=== PATIENT | male | born 1985 | race Caucasian/White ===

== ENCOUNTER 2021-02-10 10:00 | Outpatient (CLI) | payer OTHER, SELFPAY ==
--- NOTE | ~2021-02-10 | CT_ITS ---
EXAMINATION: CT abdomen pelvis w con DATE: 02/10/2021 10:26 INDICATION: Abdomen pain TECHNIQUE: Computed tomography (CT) of the abdomen and pelvis was performed with 100 cc intravenous c ontrast. The dose-length product was 537.13 mGy-cm. Automated exposure control and iterative reconstr uction technique were employed. COMPARISON: None. FINDINGS: Lung bases are unremarkable. Heart size normal. No significant pleural or pericardial effus ion. There are multiple nonenlarged retroperitoneal lymph nodes, likely reactive. No significant vasc ular abnormality. Mild thickening of the sigmoid colon with multiple colonic diverticula. There is subtle pericolonic f atty infiltration, suspicious for mild acute diverticulitis. The liver, spleen, pancreas, adrenal glands and kidneys are unremarkable. Gallbladder is present. No free air or free fluid. Normal appendix. Bladder wall is mildly prominent, although not well distende d. Prostate gland is mildly prominent. IMPRESSION: 1. Mild thickening of the sigmoid colon with colonic diverticulosis and subtle pericolonic fatty infi ltration. Findings suspicious for mild acute uncomplicated diverticulitis. Reviewed, dictated and finalized at location A. IMPRESSION: 1. Mild thickening of the sigmoid colon with colonic diverticulosis and subtle pericolonic fatty infiltration. Findings suspicious for mild acute uncomplicate d diverticulitis.
[2021-02-10 11:07] LABS: Basophils Absolute Auto 0.1 K/mm3 (0.0-0.1); Basophils Percent Auto 1.1 % (0.2-1.2); Eosinophils Absolute Auto 0.1 K/mm3 (0-0.3); Eosinophils Percent Auto 1.9 % (0-4.4); Hematocrit 49.9 % (42.0-52.0); Hemoglobin 16.2 g/dL (14.0-18.0); Immature Granulocyte Absolute 0.01 K/mm3 (0.00-0.031); Immature Granulocyte Percent A 0.2 % (0-0.5); Lymphocytes Absolute Auto 2.47 K/mm3 (0.9-3.2); Lymphocytes Percent Auto 46.4 % (18.3-44.2); Mean Corpuscular HGB Conc 32.5 g/dl (32-36); Mean Corpuscular Hemoglobin 27.7 pg (26-34); Mean Corpuscular Volume 85.4 fl (80-100); Mean Platelet Volume 8.1 fl (7.4-10.4); Monocytes Absolute Auto 0.3 K/mm3 (0.1-0.6); Monocytes Percent Auto 6.4 % (2.6-8.5); Neutrophils Absolute Auto 2.3 K/mm3 (1.3-6.7); Platelet Count Result 403 k/mm3 (150-375); Red Blood Count 5.84 M/mm3 (4.6-6.20); Red Cell Distribution Width 13.4 % (11.5-14.5); White Blood Count 5.3 K/mm3 (4.5-10.0)
[2021-02-10 11:08] LABS: Add Urine Microscopic? NO; Appearance Urine Clear (Clear); Bilirubin Urine Negative (Negative); Blood Urine Negative (Negative); Color Urine Yellow (Yellow); Glucose Urine UA Negative (Negative); Ketones Urine Negative (Negative); Leukocyte Esterase Ur Negative LEU/UL (Negative); Nitrate Urine Negative (Negative); Protein Urine Negative (Negative); Urobilinogen Urine Negative mg/dL (<2.0)
[2021-02-10 11:11] LABS: Specific Grav Ur > 1.060 (1.001-1.035)
[2021-02-10 11:23] LABS: Alanine Aminotransferase 25 U/L (4-50); Albumin Level 4.7 g/dL (3.5-5.1); Alkaline Phosphatase 47 U/L (38-126); Anion Gap 4 mmol/L (8-16); Aspartate Amino Transferase 27 U/L (17-59); Bilirubin,Total 0.6 mg/dL (0.2-1.3); Blood Urea Nitrogen 10 mg/dL (9-20); Calcium 9.7 mg/dL (8.4-10.2); Carbon Dioxide 30 mmol/L (22-30); Chloride 102 mmol/L (98-107); Cholesterol 203 mg/dL (0-200); Estimated Glomerular Filt Rate > 60; Glucose 99 mg/dL (75-110); HDL Direct 48 mg/dL; Sodium 136 mmol/L (137-145); Triglycerides 126 mg/dL (<150)
[2021-02-10 11:28] LABS: LDL Cholesterol Direct 123 mg/dL
== END 2021-02-10 10:01 | disposition home or self-care (01) ==
PROVIDERS: PCP Internal Medicine; Visit Provider Nurse Practitioner
DX: K92.1 Melena (principal); R10.9 Unspecified abdominal pain; Z13.220 Encounter for screening for lipoid disorders
CPT/HCPCS: 36415; 74177; 80053; 80061; 81003; 85025; Q9967

== ENCOUNTER 2025-02-04 08:29 | Observation (INO) | payer OTHER, SELFPAY ==
[2025-02-04] VITALS (14 sets, daily range): BP systolic 106–143; BP diastolic 66–93; PULSE 73–96; RESP 16–20; TEMP 36.3–37; O2SAT 97–100; BMI 36.0
--- NOTE | ~2025-02-04 | CT_ITS ---
EXAMINATION: CT abdomen pelvis w con DATE: 02/04/2025 09:27 INDICATION: Left lower quadrant abdominal pain TECHNIQUE: Computed tomography (CT) of the abdomen and pelvis was performed without intravenous contr ast. Automated exposure control and iterative reconstruction technique were employed. The dose-length product was 1379.69 mGy-cm. COMPARISON: None FINDINGS: Lung bases are clear. Heart size normal. No pericardial or pleural effusion. Liver, gallbladder, sple en, pancreas, bilateral adrenal glands and kidneys are normal. Normal appendix. No bowel obstruction. There are several scattered diverticula with descending and sigmoid colon predominance. There is pro minent wall thickening and inflammatory stranding along the sigmoid colon consistent with diverticuli tis. 3.3 x 1.6 x 2.2 cm gas and fluid collection along the anterior margin of the sigmoid colon withi n this region which could represent a diverticulum versus a small intramural abscess. There is promin ent edematous-appearing wall thickening of the partially decompressed bladder with prompt at the dome of the bladder where there is some surrounding stranding extending between the bladder and the regio n of diverticulitis suggesting this could be reactive as opposed to due to cystitis. No free intraper itoneal gas or fluid. No pathologically enlarged abdominal or pelvic lymphadenopathy. Chronic mild li mary physiologic anterior wedging at L1. Mild lumbar and lower thoracic spondylosis. IMPRESSION: 1. Sigmoid diverticulitis with possible small intramural abscess. 2. Edematous wall thickening at the dome of the bladder with surrounding inflammatory stranding most likely reactive related to the adjacent diverticulitis as opposed to cystitis but would correlate wit h urinalysis. Reviewed, dictated and finalized at location A. IMPRESSION: 1. Sigmoid diverticulitis with possible small intramural abscess. 2. Edematous wall thickening at the dome of the bladder with surrounding inflam matory stranding most likely reactive related to the adjacent diverticulitis as opposed to cystitis but would correlate with urinalysis.
[2025-02-04 09:00] LABS: Add Urine Microscopic? YES; Appearance Urine Clear (Clear); Bacteria Urine None Seen /hpf; Bilirubin Urine 1+ (Negative); Blood Urine 1+ (Negative); Color Urine Dark Yellow (Yellow); Glucose Urine UA Negative (Negative); Ketones Urine Trace mg/dL (Negative); Leukocyte Esterase Ur Negative LEU/UL (Negative); Nitrate Urine Negative (Negative); Non Pathogenic Casts 0-2; Protein Urine 1+ mg/dL (Negative); Specific Grav Ur 1.034 (1.001-1.035); Squamous Epithelial Cell Urine None Seen /hpf (Few); WBC Urine 0-5 /hpf (0-3)
[2025-02-04 09:02] LABS: Basophils Absolute Auto 0.1 K/mm3 (0.0-0.1); Basophils Percent Auto 0.8 % (0.2-1.2); Eosinophils Absolute Auto 0.6 K/mm3 (0-0.3); Eosinophils Percent Auto 4.6 % (0-4.4); Hematocrit 43.6 % (42.0-52.0); Hemoglobin 13.5 g/dL (14.0-18.0); Immature Granulocyte Absolute 0.07 K/mm3 (0.00-0.031); Immature Granulocyte Percent A 0.6 % (0-0.5); Lymphocytes Absolute Auto 2.58 K/mm3 (0.9-3.2); Lymphocytes Percent Auto 21.7 % (18.3-44.2); Mean Corpuscular Hemoglobin 26.4 pg (26-34); Mean Corpuscular Volume 85.3 fl (80-100); Mean Platelet Volume 8.4 fl (7.4-10.4); Monocytes Absolute Auto 1.2 K/mm3 (0.1-0.6); Monocytes Percent Auto 9.7 % (2.6-8.5); Neutrophils Absolute Auto 7.4 K/mm3 (1.3-6.7); Neutrophils Percent Auto 62.6 % (45.5-73.1); Platelet Count Result 575 k/mm3 (150-375); Red Blood Count 5.11 M/mm3 (4.6-6.20); Red Cell Distribution Width 13.2 % (11.5-14.5); White Blood Count 11.9 K/mm3 (4.5-10.0)
[2025-02-04 09:09] LABS: Alanine Aminotransferase 35 U/L (6-50); Albumin Level 4.2 g/dL (3.5-5.1); Alkaline Phosphatase 93 U/L (38-126); Anion Gap 11 mmol/L (4-12); Aspartate Amino Transferase 21 U/L (17-59); Bilirubin,Total 0.4 mg/dL (0.2-1.3); Blood Urea Nitrogen 13 mg/dL (9-20); Calcium 9.1 mg/dL (8.4-10.2); Carbon Dioxide 29 mmol/L (22-30); Chloride 101 mmol/L (98-107); Estimated CRCL calculation 145 ml/min; Estimated Glomerular Filt Rate > 60; Glucose 108 mg/dL (65-110); Lipase 65 U/L (23-300); Potassium 4.2 mmol/L (3.4-5.0); Sodium 141 mmol/L (137-145)
[2025-02-04 09:14] LABS: Estimated CRCL calculation 127 ml/min; Estimated Glomerular Filt Rate > 60
--- NOTE | 2025-02-04 09:42 | ED_ITS ---
HPI - Abdominal Pain General Chief Complaint: Abdominal Pain Stated Complaint: abd pain Time Seen by Provider: 02/04/25 08:54 History of Present Illness HPI narrative: Pt presents with abdominal pain in LLQ. Pt has history of diverticulitis and had some left over antibiotics which he took. Pt says the pain started a week ago and he took a few days fo antibiotics which helped the pain but it is still present. Pt denies fever or chills or bloody stools. Related Data Allergies Allergy/AdvReac Type Severity Reaction Status Date / Time shellfish derived Allergy Bothering Verified 02/04/25 13:42 MRI Review of Systems 2 Review of Systems: All systems reviewed & are unremarkable except as noted in HPI and below PMFSH Past Medical History Medical History Asthma Broken finger Diverticulitis Family History Family History (Updated 02/04/25 @ 13:52 by Blanco Spivey RN) Father Alcoholism Mother Hypertension Cancer Sibling Heart disease Social History Social History Smoking packs per day: 1.5 Smoking cigarettes per day: 30.0 Years smoked: 25 Smoking pack-years: 37.50 Smoking status: Current every day smoker Tobacco type: cigarettes Alcohol intake: current Drinks per week: 4 Substance use: current Substance use type: marijuana Do You Feel Safe in your Home?: Yes Lack of Transportation: No Lack of Food: Never True Current Housing: I Have Housing Concerned About Future Housing: No Difficulty Paying Gas/Electric Bills: No Difficulty Paying for Meds: No Currently Unemployed: No Education: High School Diploma/GED Difficulty w/ Childcare or Family Care: No Spiritual care concerns: No Exam 2 Const: General: healthy appearing and no acute distress Nutritional Appearance: well nourished Orientation/consciousness: patient oriented x3 Limitations: no limitations Resp: Effort & Inspection: normal respiratory effort Auscultation: clear to auscultation bilaterally Cardio: Rate: regular rate Rhythm: regular rhythm GI: GI Palp: Yes Soft to palpation and Yes Tenderness to palpation present (GI) (mild llq tenderness) Auscultation: normal bowel sounds Skin: General skin exam: normal color Rashes: no rashes Wounds: no wounds Neuro: General: patient oriented x3, moves all extremities, no meningeal signs and no focal motor deficits Speech: normal speech Extrem: General: normal to inspection and no clubbing, cyanosis or edema Psych: Mental Status: mental status grossly normal Affect: normal affect Attitude: cooperative Course Vital Signs Vital signs: Vital Signs Temperature 97.3 F L 02/04/25 08:34 Pulse Rate 96 02/04/25 08:34 Respiratory Rate 18 02/04/25 08:34 Blood Pressure 143/93 H 02/04/25 08:34 Pulse Oximetry 100 02/04/25 08:34 Temperature 97.8 F 02/04/25 13:46 Pulse Rate 73 02/04/25 13:46 Respiratory Rate 18 02/04/25 13:46 Blood Pressure 115/66 02/04/25 13:46 Pulse Oximetry 97 02/04/25 13:46 Oxygen Delivery Room Air 02/04/25 14:00 MDM - Abdominal Pain MDM Narrative Medical decision making narrative: Pt presents with LLQ pain that has been present for a week. Pt took some left over antibiotics which helped but still present. Pt is partially treated so will need labs and CT to rule out diverticulitis or abscess. Pt does not want pain meds. Pt has diverticulitis with small intramural abscess. discussed with Dr Joseph and said he probably needs IV antibiotics and admission. Discussed with Terrie Jin will admit Lab Data 02/04/25 08:49 02/04/25 09:12 Labs: Lab Results 02/04/25 02/04/25 Range/Units 08:49 09:12 WBC 11.9 H (4.5-10.0) K/mm3 RBC 5.11 (4.6-6.20) M/mm3 Hgb 13.5 L (14.0-18.0) g/dL Hct 43.6 (42.0-52.0) % MCV 85.3 (80-100) fl MCH 26.4 (26-34) pg MCHC 31.0 L (32-36) g/dl RDW 13.2 (11.5-14.5) % Plt Count 575 H (150-375) k/mm3 MPV 8.4 (7.4-10.4) fl Immature Gran % (Auto) 0.6 H (0-0.5) % Neut % (Auto) 62.6 (45.5-73.1) % Lymph % (Auto) 21.7 (18.3-44.2) % [place] % (Auto) 9.7 H (2.6-8.5) % Eos % (Auto) 4.6 H (0-4.4) % Baso % (Auto) 0.8 (0.2-1.2) % Lymph # (Auto) 2.58 (0.9-3.2) K/mm3 [place] # (Auto) 1.2 H (0.1-0.6) K/mm3 Eos # (Auto) 0.6 H (0-0.3) K/mm3 Baso # (Auto) 0.1 (0.0-0.1) K/mm3 Abs Immat Gran (auto) 0.07 H (0.00-0.031) K/mm3 Absolute Neuts (auto) 7.4 H (1.3-6.7) K/mm3 Absolute Nucleated RBC 0.000 (0.0-0.012) K/mm3 Nucleated RBC % 0.0 (0.0-0.2) % Sodium 141 (137-145) mmol/L Potassium 4.2 (3.4-5.0) mmol/L Chloride 101 (98-107) mmol/L Carbon Dioxide 29 (22-30) mmol/L Anion Gap 11 (4-12) mmol/L BUN 13 (9-20) mg/dL Creatinine 0.78 0.90 (0.7-1.3) mg/dL Estim Creat Clear Calc 145 127 ml/min Estimated GFR > 60 > 60 (59 - ) Glucose 108 (65-110) mg/dL Calcium 9.1 (8.4-10.2) mg/dL Total Bilirubin 0.4 (0.2-1.3) mg/dL AST 21 (17-59) U/L ALT 35 (6-50) U/L Alkaline Phosphatase 93 (38-126) U/L Total Protein 8.0 (6.3-8.2) g/dL Albumin 4.2 (3.5-5.1) g/dL Lipase 65 (23-300) U/L Urine Color Dark yellow (Yellow) Urine Appearance Clear (Clear) Urine pH 6.0 (5.0-9.0) Ur Specific [place] 1.034 (1.001-1.035) Urine Protein 1+ H (Negative) mg/dL Urine Glucose (UA) Negative (Negative) mg/dL Urine Ketones Trace H (Negative) mg/dL Ur Blood (Man) 1+ H (Negative) Urine Nitrate Negative (Negative) Urine Bilirubin 1+ H (Negative) Urine Urobilinogen 1.0 (<2.0) mg/dL Leukocyte Esterase Rfl Negative (Negative) MALIKA/UL Urine RBC 11-20 H (0-2) /hpf Urine WBC 0-5 (0-3) /hpf Ur Squamous Epith Cells None seen (Few) /hpf Urine Bacteria None seen /hpf Urine Casts 0-2 Imaging Data Radiologist's impression: ITS Impressions Abdomen/Pelvis CT 02/04/25 10:10 IMPRESSION: 1. Sigmoid diverticulitis with possible small intramural abscess. 2. Edematous wall thickening at the dome of the bladder with surrounding inflammatory stranding most likely reactive related to the adjacent diverticulitis as opposed to cystitis but would correlate with urinalysis. Discharge Plan Discharge Clinical Impression: Diverticulitis Patient Disposition: Still a Patient Condition: Stable
--- NOTE | 2025-02-04 12:20 | P.HP_ITS ---
H&P: HPI History of Present Illness Date/Time: 02/04/25 12:20 Chief Complaint: Fever, Abdominal Pain Narrative: 39 y/o M with PMH of diverticulitis and asthma presents here with abdominal pain and fever. The patient presents here from home for further evaluation of abdominal pain and fever on 02/04. He reports onset of left lower quadrant abdominal pain approximately 1 week ago. He reports the pain was similar to his previous episode of diverticulitis. Last occurrence in 2020. He describes the pain as achy and in his LLQ/periumbilical/supra pubic region. The patient had a previous prescription of Augmentin and had extra medication, took 10 doses (bid x5 days) to try to treat the presumed diverticulitis. Pain did not resolve. Now reporting fever, chills, and intermittent/mild diaphoresis. He denies body aches, hematochezia/dark tarry stools, or urinary symptoms. Initial VS at presentation: 97.3? F, HR 96, R 18, 143/93, and 100% on RA. ED workup showed: WBC 11.9, hemoglobin 13.5, no significant electrolyte derangements, creatinine 0.9 and GFR >60, and UA showed 1+ protein/trace ketones/1+ blood/1+ bilirubin/11-[address] of the abdomen/pelvis showed sigmoid diverticulitis with possible small intramural abscess (3.3 x 1.6 x 2.2 cm gas/fluid collection) and edematous wall thickening of the dome of the bladder with surrounding inflammatory stranding most likely reactive related to the adjacent diverticulitis as opposed to cystitis (correlate with UA). Review of Systems Review of Systems: All systems reviewed & are unremarkable except as noted in HPI and below [facility] Past Medical History Medical History Asthma Broken finger Diverticulitis Family History Family History Father Alcoholism Mother Hypertension Sibling Heart disease Social History Social History Smoking packs per day: 1 Smoking cigarettes per day: 20.0 Smoking status: Current every day smoker Alcohol intake: current Meds Home Medications and Allergies Home Medications ?Medication ?Instructions ?Recorded ?Confirmed ?Type cyclobenzaprine 10 mg tablet 10 mg PO TID PRN muscle spasm #20 07/06/21 07/06/21 Rx tabs methylprednisolone 4 mg tablets in See Rx Instructions PO PER PKG DIR 07/06/21 07/06/21 Rx a dose pack (Medrol ([place])) #21 ea Allergies Allergy/AdvReac Type Severity Reaction Status Date / Time shellfish derived Allergy Bothering Verified 02/07/21 14:35 MRI Vital Signs Vital Signs - 24 hr 02/04/25 08:34 02/04/25 08:51 02/04/25 09:01 Temperature 97.3 F L 97.9 F Pulse Rate 96 82 84 Respiratory Rate 18 16 16 Blood Pressure 143/93 H 130/77 140/79 Pulse Oximetry 100 97 98 02/04/25 09:35 Temperature Pulse Rate 82 Respiratory Rate 16 Blood Pressure 126/73 Pulse Oximetry 97 Exam Const: General: comfortable and no acute distress Other: , male, nontoxic appearance HENMT: Face/Nose/Sinus: Normal nares present Mouth: Yes moist mucous membranes Eyes: General: appearance normal, both eyes and all related structures Sclera: sclerae normal Pupils: Equal, round and reactive pupils present EOM: EOMs intact bilaterally Resp: Effort & Inspection: normal respiratory effort Auscultation: clear to auscultation bilaterally Cardio: Rate: regular rate Rhythm: regular rhythm Other: S1-S2 present without murmur, rub, ectopy GI: Other: Abdomen soft, nondistended, nontender. Normoactive bowel sounds in all quadrants. Skin: General skin exam: normal color and no rashes or lesions noted Wounds: no wounds Neuro: Speech: normal speech Motor exam (neuro): 5/5 motor strength present throughout Sensory Exam: normal sensation Other: A&O x4 Extrem: General: normal to inspection Psych: Mental Status: mental status grossly normal Affect: normal affect Other: Good insight and judgment, pleasant H&P: Results Labs Labs: Short CBC 02/04/25 Range/Units 08:49 WBC 11.9 H (4.5-10.0) K/mm3 Hgb 13.5 L (14.0-18.0) g/dL Hct 43.6 (42.0-52.0) % Plt Count 575 H (150-375) k/mm3 BMP 05/02/25 05/02/25 08:49 09:12 Sodium 141 Potassium 4.2 Chloride 101 Carbon Dioxide 29 BUN 13 Creatinine 0.78 0.90 Glucose 108 Calcium 9.1 Liver Function 02/04/25 Range/Units 08:49 Total Bilirubin 0.4 (0.2-1.3) mg/dL AST 21 (17-59) U/L ALT 35 (6-50) U/L Alkaline Phosphatase 93 (38-126) U/L Albumin 4.2 (3.5-5.1) g/dL Urine 02/04/25 Range/Units 08:49 Urine Color Dark yellow (Yellow) Urine Appearance Clear (Clear) Urine pH 6.0 (5.0-9.0) Ur Specific [place] 1.034 (1.001-1.035) Urine Protein 1+ H (Negative) mg/dL Urine Glucose (UA) Negative (Negative) mg/dL Assessment and Plan Assessment and plan (1) Diverticulitis: Code(s): K57.92 - Diverticulitis of intestine, part unspecified, without perforation or abscess without bleeding Status: Acute Assessment and Plan: - CT abd/pelvis: 1. Sigmoid diverticulitis with possible small intramural abscess. 2. Edematous wall thickening at the dome of the bladder with surrounding inflammatory stranding most likely reactive related to the adjacent diverticulitis as opposed to cystitis but would correlate with urinalysis. - started on Zosyn on 02/04 - general surgery consulted due to possible abscess on CT - IV fluids: LR at 125 mL/hr - clear liquid diet - pain medication prn - daily clinical reassessment for improvement Plan Diet: Clear liquid GI Prophylaxis: Not currently indicated DVT Prophylaxis: SCDs IV fluids: LR at 125 mL/hour Lines/Tubes: Peripheral IV Code Status: Full code Quality VTE Prophylaxis VTE prophylaxis: mechanical ordered Hospitalist MIPS Advance Care Plan I have confirmed that the patient's Advanced Care Plan is present, code status is documented, or surrogate decision maker is listed in patient medical record.: Yes Medication Reconciliation I have utilized all available resources to obtain, update and review the patients current medications (includes all prescriptions, OTC, herbals, cannabis, and nutritional supplements).: Yes
[2025-02-04] MEDS: PIPERACILLIN/TAZ 4.5G/NS 100ML 4.5 GM/100 ML BAG IVPB (12:22)
[2025-02-04] MEDS: ONDANSETRON INJ 4 MG/2 ML VIAL IV PUSH (12:50)
[2025-02-04] MEDS: HYDROcodone/acetaminophen (*CRX) 5-325 MG TABLET 1 TAB PO ×2 (12:50→21:23)
[2025-02-04] MEDS: LACTATED RINGERS 1,000 ML 125 ML IV CONT ×2 (12:50→21:23)
--- NOTE | 2025-02-04 13:40 | ADMGEN ---
This patient, Santos Bernardo, was admitted to 2 Medical Room 250-01. Patient/family oriented to hospital policies and general routines including ID bracelet, bed and alarms, visiting hours, pain management, procedures, bathroom and other care routines, personal items, smoking policy, room service/diet, and visiting hours. Information on how to activate the Rapid Response Team has been discussed. Patient/Family are encouraged to report perceived risks to care and to ask questions if they do not understand what they are told or what they should do.
[2025-02-04] MEDS: MORPHINE SULFATE (*CRX) 2 MG/ML INJ IV PUSH (16:25)
[2025-02-04] MEDS: PIPERACILLN/TAZ 3.375GM/NS50ML 3.375 GM/50 ML BAG IVPB ×2 (18:32→23:44)
[2025-02-05] MEDS: LACTATED RINGERS 1,000 ML 125 ML IV CONT (03:35)
[2025-02-05] MEDS: HYDROcodone/acetaminophen (*CRX) 5-325 MG TABLET 1 TAB PO ×4 (03:35→23:57)
[2025-02-05 05:13] LABS: Basophils Absolute Auto 0.1 K/mm3 (0.0-0.1); Basophils Percent Auto 1.4 % (0.2-1.2); Eosinophils Absolute Auto 0.6 K/mm3 (0-0.3); Eosinophils Percent Auto 6.7 % (0-4.4); Hematocrit 39.6 % (42.0-52.0); Hemoglobin 12.4 g/dL (14.0-18.0); Immature Granulocyte Absolute 0.05 K/mm3 (0.00-0.031); Immature Granulocyte Percent A 0.5 % (0-0.5); Lymphocytes Absolute Auto 2.76 K/mm3 (0.9-3.2); Lymphocytes Percent Auto 29.3 % (18.3-44.2); Mean Corpuscular HGB Conc 31.3 g/dl (32-36); Mean Corpuscular Hemoglobin 26.2 pg (26-34); Mean Corpuscular Volume 83.5 fl (80-100); Mean Platelet Volume 8.3 fl (7.4-10.4); Monocytes Absolute Auto 0.8 K/mm3 (0.1-0.6); Monocytes Percent Auto 8.5 % (2.6-8.5); Neutrophils Absolute Auto 5.1 K/mm3 (1.3-6.7); Neutrophils Percent Auto 53.6 % (45.5-73.1); Platelet Count Result 563 k/mm3 (150-375); Red Blood Count 4.74 M/mm3 (4.6-6.20); Red Cell Distribution Width 13.1 % (11.5-14.5); White Blood Count 9.4 K/mm3 (4.5-10.0)
[2025-02-05 05:32] LABS: Alanine Aminotransferase 27 U/L (6-50); Albumin Level 3.6 g/dL (3.5-5.1); Alkaline Phosphatase 82 U/L (38-126); Anion Gap 4 mmol/L (4-12); Aspartate Amino Transferase 21 U/L (17-59); Bilirubin,Total 0.4 mg/dL (0.2-1.3); Blood Urea Nitrogen 7 mg/dL (9-20); Calcium 8.5 mg/dL (8.4-10.2); Carbon Dioxide 30 mmol/L (22-30); Chloride 103 mmol/L (98-107); Estimated CRCL calculation 138 ml/min; Estimated Glomerular Filt Rate > 60; Glucose 99 mg/dL (65-110); Potassium 4.2 mmol/L (3.4-5.0); Sodium 137 mmol/L (137-145)
[2025-02-05 06:00] VITALS: BP 147/68; PULSE 79; RESP 16; TEMP 36.1; O2SAT 96
[2025-02-05] MEDS: PIPERACILLN/TAZ 3.375GM/NS50ML 3.375 GM/50 ML BAG IVPB ×4 (06:35→23:56)
--- NOTE | 2025-02-05 07:48 | PM.IMPN ---
Progress Note: A&P Assessment and Plan (1) Diverticulitis: Code(s): K57.92 - Diverticulitis of intestine, part unspecified, without perforation or abscess without bleeding Status: Acute Assessment and Plan: - CT abd/pelvis: 1. Sigmoid diverticulitis with possible small intramural abscess. 2. Edematous wall thickening at the dome of the bladder with surrounding inflammatory stranding most likely reactive related to the adjacent diverticulitis as opposed to cystitis but would correlate with urinalysis. - started on Zosyn on 02/04 - general surgery consulted due to possible abscess on CT - recs for abx and admission - IV fluids: N/A - Low fiber diet - pain medication prn - daily clinical reassessment for improvement - continue to trend labs in the AM, WBC now WDL - Per GI note this AM: White blood count is now normalized. Continue with IV antibiotics today. Will advanced to low-fiber diet today. Likely home tomorrow on oral antibiotics and have him follow see my partner Dr. Magallon for a colonoscopy in 4 to 6 weeks. After that time can further discuss whether an elective sigmoid colon resection to prevent further episodes of diverticulitis would be beneficial for him. Plan Diet: Low-fiber GI Prophylaxis: Not currently indicated DVT Prophylaxis: SCDs IV fluids: N/A Lines/Tubes: Peripheral IV Code Status: Full code Subjective Date/time seen: 02/05/25 1130 Interval history: Pt ambulating in room, stable. Partner at the bedside. Pt reporting suprapubic abd pain, but very mild, denies pain anywhere else. Pt also reporting tolerating liquid diet well with plans to advance to low-fiber diet per GI. Denies N/V/D. Reports loose BM this AM, denies melena. VSS. Review of Systems Review of Systems: All systems reviewed & are unremarkable except as noted in HPI and below Gastrointestinal: Gastrointestinal: Reports abdominal pain (mild suprapubic) Exam Const: General: comfortable and no acute distress HENMT: Face/Nose/Sinus: Normal nares present Mouth: Yes moist mucous membranes Eyes: General: appearance normal, both eyes and all related structures Sclera: sclerae normal Neck: Neck: supple and no JVD Carotids: no bruits Resp: Effort & Inspection: normal respiratory effort Auscultation: clear to auscultation bilaterally Cardio: Rate: regular rate Rhythm: regular rhythm GI: Auscultation: abnormal bowel sounds (hypo) Skin: General skin exam: normal color and no rashes or lesions noted Wounds: no wounds Neuro: General: gait normal Speech: normal speech Motor exam (neuro): Normal motor muscle tone present throughout Sensory Exam: normal sensation Extrem: General: normal to inspection Psych: Mental Status: mental status grossly normal Affect: normal affect Objective Data Vital Signs Vital Signs: Vital Signs - 24 hr 02/04/25 08:34 02/04/25 08:51 02/04/25 09:01 Temperature 97.3 F L 97.9 F Pulse Rate 96 82 84 Respiratory Rate 18 16 16 Blood Pressure 143/93 H 130/77 140/79 Pulse Oximetry 100 97 98 Oxygen Delivery 02/04/25 09:35 02/04/25 10:01 02/04/25 10:31 Temperature 97.8 F Pulse Rate 82 82 74 Respiratory Rate 16 16 16 Blood Pressure 126/73 124/81 133/84 Pulse Oximetry 97 98 100 Oxygen Delivery 02/04/25 11:01 02/04/25 11:31 02/04/25 12:01 Temperature 97.8 F 97.8 F Pulse Rate 75 74 76 Respiratory Rate 16 16 16 Blood Pressure 106/67 131/69 128/76 Pulse Oximetry 100 99 98 Oxygen Delivery 02/04/25 12:31 02/04/25 13:01 02/04/25 13:46 Temperature 97.8 F 97.8 F Pulse Rate 75 74 73 Respiratory Rate 16 16 18 Blood Pressure 117/76 114/75 115/66 Pulse Oximetry 100 98 97 Oxygen Delivery 02/04/25 14:00 02/04/25 20:00 02/04/25 21:42 Temperature Pulse Rate Respiratory Rate Blood Pressure Pulse Oximetry 98 Oxygen Delivery Room Air Room Air Room Air 02/04/25 21:48 02/05/25 06:00 Temperature 98.6 F 97 F L Pulse Rate 84 79 Respiratory Rate 20 16 Blood Pressure 133/71 147/68 H Pulse Oximetry 98 96 Oxygen Delivery Intake/Output Intake/Output: Intake & Output 02/02/25 02/03/25 02/04/25 02/05/25 23:59 23:59 23:59 23:59 Intake Total 1750 1125 Balance 1750 1125 Meds/Results Medications: Active Medications Generic Name Dose Route Start Last Admin Trade Name Freq PRN Reason Stop Dose Admin Acetaminophen 650 mg 02/04/25 12:27 Acetaminophen 325 Mg Tablet PO Q4H PRN Mild Pain (1-3) or Fever Hydrocodone Bitart/Acetaminophen 1 tab 02/04/25 12:27 02/05/25 03:35 Hydrocodone/Acetaminophen (*Crx) 5-325 Mg Tablet PO 1 tab Q6H PRN Administration Pain Rated 4-6 Cyclobenzaprine HCl 10 mg 02/04/25 14:57 Cyclobenzaprine Hcl 10 Mg Tablet PO TID PRN muscle spasm Docusate Sodium 100 mg 02/04/25 12:27 Docusate Sodium 100 Mg Capsule PO Q12H PRN Constipation Lactated Ringer's 1,000 mls @ 125 mls/hr 02/04/25 12:20 02/05/25 03:35 Lr - Lactated Ringers Iv IV CONT 125 mls/hr .Q8H CHRISTINE Administration Piperacillin/Tazobactam/Dextrose 3.375 gm in 50 mls @ 100 mls/hr 02/04/25 18:20 02/05/25 06:35 Zosyn 3.375 Gm/Ns 50 Ml IVPB 100 mls/hr Q6HR CHRISTINE Administration Morphine Sulfate 2 mg 02/04/25 12:27 02/04/25 16:25 Morphine Sulfate (*Crx) 2 Mg/Ml Inj IV PUSH 2 mg Q4H PRN Administration Pain Rated 7-10 Ondansetron HCl 4 mg 02/04/25 12:27 02/04/25 12:50 Ondansetron Inj 4 Mg/2 Ml Vial IV PUSH 4 mg Q6H PRN Administration Nausea And Vomiting Radiology Results: ITS Impressions Abdomen/Pelvis CT 02/04/25 10:10 IMPRESSION: 1. Sigmoid diverticulitis with possible small intramural abscess. 2. Edematous wall thickening at the dome of the bladder with surrounding inflammatory stranding most likely reactive related to the adjacent diverticulitis as opposed to cystitis but would correlate with urinalysis. Labs Labs: Laboratory Results - last 24 hr 02/04/25 02/04/25 02/05/25 08:49 09:12 04:44 WBC 11.9 H 9.4 RBC 5.11 4.74 Hgb 13.5 L 12.4 L Hct 43.6 39.6 L MCV 85.3 83.5 MCH 26.4 26.2 MCHC 31.0 L 31.3 L RDW 13.2 13.1 Plt Count 575 H 563 H MPV 8.4 8.3 Immature Gran % (Auto) 0.6 H 0.5 Neut % (Auto) 62.6 53.6 Lymph % (Auto) 21.7 29.3 [place] % (Auto) 9.7 H 8.5 Eos % (Auto) 4.6 H 6.7 H Baso % (Auto) 0.8 1.4 H Lymph # (Auto) 2.58 2.76 [place] # (Auto) 1.2 H 0.8 H Eos # (Auto) 0.6 H 0.6 H Baso # (Auto) 0.1 0.1 Abs Immat Gran (auto) 0.07 H 0.05 H Absolute Neuts (auto) 7.4 H 5.1 Absolute Nucleated RBC 0.000 0.000 Nucleated RBC % 0.0 0.0 Sodium 141 137 Potassium 4.2 4.2 Chloride 101 103 Carbon Dioxide 29 30 Anion Gap 11 4 BUN 13 7 L D Creatinine 0.78 0.90 0.78 Estim Creat Clear Calc 145 127 138 Estimated GFR > 60 > 60 > 60 Glucose 108 99 Calcium 9.1 8.5 Total Bilirubin 0.4 0.4 AST 21 21 ALT 35 27 Alkaline Phosphatase 93 82 Total Protein 8.0 7.0 Albumin 4.2 3.6 Lipase 65 Urine Color Dark yellow Urine Appearance Clear Urine pH 6.0 Ur Specific [place] 1.034 Urine Protein 1+ H Urine Glucose (UA) Negative Urine Ketones Trace H Ur Blood (Man) 1+ H Urine Nitrate Negative Urine Bilirubin 1+ H Urine Urobilinogen 1.0 Leukocyte Esterase Rfl Negative Urine RBC 11-20 H Urine WBC 0-5 Ur Squamous Epith Cells None seen Urine Bacteria None seen Urine Casts 0-2 Quality VTE Prophylaxis VTE prophylaxis: mechanical ordered
--- OUTSIDE RECORDS SUMMARY | 2025-02-05 11:10 | XMS_ITS | Clinical Summary ---
Author Organization [facility] Address [address] [place] [address] Care Team Providers Care Manager Pe Name Role Phone Markus Amato MD Primary Care Provider [phone] Tigre Li MD Unavailable [phone] Long Trivedi MD Unavailable [phone] Francisco Hilliard MD Unavailable [phone] Allergies Active Allergy Reactions Criticality Noted Date Comments Shellfish Containing Products Itching,Other (See comments) Medium 01/04/2018 Throat swelling Medications albuterol HFA (VENTOLIN HFA) 90 mcg/actuation inhaler inhale 2 puff by inhalation route every 4 - 6 hours as needed 0 Inhaler 0 5 Active Active Problems Problem Noted Date Diagnosed Date Tobacco dependence due to cigarettes 07/21/2018 Screening for colon cancer 04/17/2018 Overview (04/17/2018): Added automatically from request for surgery [id number] History of peritonitis 04/17/2018 Overview (04/17/2018): Added automatically from request for surgery [id number] Perforation of sigmoid colon due to diverticulit is 01/04/2018 Assessment & Plan (01/04/2018 9:38 PM CDT): Surgery was consulted Dr. Villar to see the patient in the morning -will follow up with recommendations Started on Flagyl and Zosyn Will continue with IV fluids Will keep NPO Daily CBC and BMP Type And screen Moderate persistent asthma without complication 01/04/2018 Assessment & Plan (01/05/2018 5:37 AM CDT): Moderate persistent asthma, patient intermittently using albuterol for cough and wheezing. The Will start on Pulmicort and duo nebs to optimize pulmonary function Patient will need inhaled corticosteroids for controller medication for asthma symptoms with close follow-up with PCP Smoker 01/04/2018 Assessment & Plan (01/04/2018 9:11 PM CDT): Will start on Nicoderm patch Discussed smoking cessation, encouraged to quit smoking-verbalized understanding, motivated to quit Sepsis Acute peritonitis Diverticulitis of large inte asad with perforation without bleeding Assessment & Plan (01/09/2018 8:23 AM CDT): He is afebrile. He has less lower abdominal tenderness. He is tolerating a diet and is on oral antibiotics. He appears to be stable enough for outpatient therapy at this time. I can follow him up in the office in 1-2 weeks. Should he have a decline in his condition before that, he should be re-evaluated sooner, either in the office or the emergency room. Resolved Problems Problem Noted Date Diagnosed Date Resolved Date BMI 31.0-31.9,adult 01/08/2018 04/09/20 18 Immunizations Immunization Administration Dates Next Due Influenza, Unspecified 07/21/2018(Deferr ed: Patient Refused),07/21/2018(Deferred: Patient Refused),04/09/2018(Deferred: Patient Refused),10/07/2017(Deferred: Patient Refused),10/07/2016(Deferred: Patient Refused),10/06/2016(Deferred: Patient Refused) Medical History Medical History Date Comments Diverticulosis Family History Medical History Relation Name Comments Coronary artery disease Paternal Grandfather 2 Coronary artery disease; Relation Name Status Comments Paternal Grandfather 1 Alive Paternal Grandfather 2 Social History Tobacco Use Types Packs/Day Years Used Date Smoking Tobacco: Every Day Cigarettes 1 10 Smokeless Tobacco: Never Tobacco Cessation:Ready to Q uit: No Comments:Smoking History Packs/day: 1 Packs Alcohol Use Standard Drinks/Week Comments Yes 0 (1 standard drink = 0.6 oz pur e alcohol) PHQ-2 Answer Date Recorded PHQ-2 Total Score (If total score is 3 or more points, staff should administer the PHQ-9) 0 05/11/2020 Sex and Gender Information Value Date Recorded Sex Assigned at Not on file 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 Gender Identity Not on file Sexual Orientation Not on file Obstetrics History Last Filed Vital Signs Vital Sign Reading Time Taken Comments Blood Pressure 130/88 05/11/2020 10:58 AM CDT Pulse 94 05/11/2020 10:58 AM CDT Temperature 36.5 C (97.7 F) 05/11/2020 10:58 AM CDT Respiratory Rate 16 05/11/2020 10:58 AM CDT Oxygen Saturation 97% 05/11/2020 10:58 AM CDT Inhaled Oxygen Concentration - - Weight 91.9 kg (202 lb 9.6 oz) 05/11/2020 10:58 AM CDT Height 177.8 cm (5' 10 ) 05/11/2020 10:58 AM CDT Body Mass Index 29.07 05/11/2020 10:58 AM CDT Plan of Treatment Not on file Insurance [facility] H[facility]PP[facility] Address: [facility] [address] [place] [address] [facility] CHOICE [facility] H[facility]/PPO Address: [facility] [address] [place] [address] Advance Directives For more information, please contact: [phone] * Full Code (Latest Code Status on File) Date Activated Date Inactivated Comments 05/11/2018 11:23 AM 05/11/2018 3:58 PM * Full Code Date Activated Date Inactivated Comments 01/04/2018 4:49 PM 01/09/2018 3:51 PM Care Teams Manager Pe Relationship Specialty Start Date End Date Markus Amato MD [address] [place] [address] PCP - General 03/17/13 Tigre Li MD [address] [place] [address] Consulting Physician Infectious Diseases 01/09/18 Long Trivedi MD [address] [place] [address] Surgeon General Surgery 01/09/18 [place] [id number] [facility] [address] [place] [address] Consulting Physician Pulmonary Disease 01/09/18
--- OUTSIDE RECORDS SUMMARY | 2025-02-05 11:10 | XMS_ITS | Referral Summary ---
Author Organization [facility] Address [address] [place] [address] Care Team Providers Care Adult Caregiver Name Role Phone Markus Amato MD Primary Care Provider [phone] Tigre Li MD Unavailable Long Trivedi MD Unavailable [phone] Francisco Hilliard MD Unavailable [phone] Allergies Active Allergy Reactions Criticality Noted Date [...] (04/17/2018): Added automatically from request for surgery [id number] History of peritonitis 04/17/2018 Overview (04/17/2018): Added automatically from request for surgery [id number] Perforation of sigmoid colon due to diverticulit [...] Refused),10/07/2017(Deferred: Patient Refused),10/07/2016(Deferred: Patient Refused),10/06/2016(Deferred: Patient Refused) Social History Tobacco Use Types Packs/Day Years [...] on file 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 [address] [place] [address] Advance Directives For more information, please contact: [phone] * Full Code (Latest Code Status on File) Date Activated Date Inactivated Comments 05/11/2018 11:23 AM 05/11/2018 3:58 PM * Full Code Date Activated Date Inactivated Comments 01/04/2018 4:49 PM 01/09/2018 3:51 PM Care Teams Adult Caregiver Relationship Specialty Start Date End Date Markus Amato MD [address] [place] [address] PCP - General 03/17/13 Tigre Li MD [address] [place] [address] Consulting Physician Infectious Diseases 01/09/18 Long Trivedi MD [address] [place] [address] Surgeon General Surgery 01/09/18 [place] [address] [facility] [address] [place] [address] Consulting Physician Pulmonary Disease 01/09/18
--- NOTE | 2025-02-05 11:21 | WPDCN ---
Assessment and Plan Assessment and plan (1) Diverticulitis of intestine with abscess: Code(s): K57.80 - Diverticulitis of intestine, part unspecified, with perforation and abscess without bleeding Status: Acute Assessment and Plan: Patient seems to be very stable. He has been started on Zosyn for IV antibiotics. No acute surgical abdomen at this time. Continue IV antibiotics and clear liquids for right now. If white blood cell count decreases and his pain is improving the may be advanced to low-fiber diet tomorrow. With his multiple episodes of recurrent diverticulitis over the last 10 years and his recent admission I think he needs to get a colonoscopy after this resolved and then discuss with him elective sigmoid colon resection to prevent further episodes of sigmoid diverticulitis. HPI Data of Consult Date/Time: 02/04/25 Requesting Physician: Toi Lord MD Primary Care Provider: Tyson Avila DO Consult Narrative Reason for consult: Sigmoid diverticulitis Narrative: Santos Bernardo is a 39 year old male admitted through the emergency room to the floor for ongoing left lower quadrant and suprapubic abdominal pain. Patient has had a history of diverticulitis over the past 10 years. His initial episode 10 years ago required hospitalization but since that time he has not been hospitalized. He has had multiple other episodes were treated home with oral antibiotics. His last colonoscopy was over 5 years ago. He took some leftover oral antibiotics he had a home when he started having this most recent course of abdominal pain which seemed to partially improve his pain but due to continued pain after several days he presented to the emergency room. In the emergency room he had a elevated white blood cell count at 12,000. I reviewed his CT scan which showed sigmoid diverticulitis with some significant inflammation around the sigmoid colon with possible intramural small abscess. No large pelvic abscess was seen. No free air is noted. Review of Systems Review of Systems: The remainder of the review of systems to include constitutional, HEENT, cardiovascular, respiratory, GI, , integumentary, musculoskeletal, endocrine, immunologic, hematologic, psychiatric, and neurologic are all negative except for which is mentioned above in the HPI. [facility] Past Medical History Medical History Asthma Broken finger Diverticulitis Family History Family History Father Alcoholism Mother Hypertension Cancer Sibling Heart disease Social History Social History Smoking packs per day: 1.5 Smoking cigarettes per day: 30.0 Years smoked: 25 Smoking pack-years: 37.50 Smoking status: Current every day smoker Tobacco type: cigarettes Alcohol intake: current Drinks per week: 4 Substance use: current Substance use type: marijuana Do You Feel Safe in your Home?: Yes Lack of Transportation: No Lack of Food: Never True Current Housing: I Have Housing Concerned About Future Housing: No Difficulty Paying Gas/Electric Bills: No Difficulty Paying for Meds: No Currently Unemployed: No Education: High School Diploma/GED Difficulty w/ Childcare or Family Care: No Spiritual care concerns: No Meds Home Medications and Allergies Home Medications ?Medication ?Instructions ?Recorded ?Confirmed ?Type cyclobenzaprine 10 mg tablet 10 mg PO TID PRN muscle spasm #20 07/06/21 02/04/25 Rx tabs Allergies Allergy/AdvReac Type Severity Reaction Status Date / Time shellfish derived Allergy Bothering Verified 02/04/25 13:42 MRI Vital Signs Vital Signs - 24 hr 02/04/25 11:31 02/04/25 12:01 02/04/25 12:31 Temperature 36.6 C Pulse Rate 74 76 75 Respiratory Rate 16 16 16 Blood Pressure 131/69 128/76 117/76 Pulse Oximetry 99 98 100 Oxygen Delivery 02/04/25 13:01 02/04/25 13:46 02/04/25 14:00 Temperature 36.6 C 36.6 C Pulse Rate 74 73 Respiratory Rate 16 18 Blood Pressure 114/75 115/66 Pulse Oximetry 98 97 Oxygen Delivery Room Air 02/04/25 20:00 02/04/25 21:42 02/04/25 21:48 Temperature 37.0 C Pulse Rate 84 Respiratory Rate 20 Blood Pressure 133/71 Pulse Oximetry 98 98 Oxygen Delivery Room Air Room Air 02/05/25 06:00 02/05/25 09:05 Temperature 36.1 C L Pulse Rate 79 Respiratory Rate 16 Blood Pressure 147/68 H Pulse Oximetry 96 Oxygen Delivery Room Air Exam Const: General: comfortable and no acute distress HENMT: Ears: TM's normal bilaterally Face/Nose/Sinus: Normal nares present Mouth: Yes moist mucous membranes Eyes: General: appearance normal, both eyes and all related structures Sclera: sclerae normal Pupils: Equal, round and reactive pupils present EOM: EOMs intact bilaterally Neck: Neck: supple and no JVD Resp: Effort & Inspection: normal respiratory effort Auscultation: clear to auscultation bilaterally Cardio: Rate: regular rate Rhythm: regular rhythm GI: Other: Abdomen is moderately obese. Soft. He has some mtcm-lm-dlcootyr tenderness in suprapubic and left lower quadrant regions of the abdomen. No guarding or rebound tenderness noted. No ventral hernias are noted. No surgical scars noted. No masses are appreciated : Male General Exam: Yes normal external exam Skin: General skin exam: normal color and no rashes or lesions noted Neuro: General: gait normal Speech: normal speech Motor exam (neuro): 5/5 motor strength present throughout and Motor abnormalites present Sensory Exam: normal sensation Extrem: General: normal to inspection Psych: Mental Status: mental status grossly normal Affect: normal affect Results Labs 02/05/25 04:44 02/05/25 04:44 Labs: Short CBC 02/05/25 Range/Units 04:44 WBC 9.4 (4.5-10.0) K/mm3 Hgb 12.4 L (14.0-18.0) g/dL Hct 39.6 L (42.0-52.0) % Plt Count 563 H (150-375) k/mm3 BMP 02/05/25 04:44 Sodium 137 Potassium 4.2 Chloride 103 Carbon Dioxide 30 BUN 7 L D Creatinine 0.78 Glucose 99 Calcium 8.5 Liver Function 02/05/25 Range/Units 04:44 Total Bilirubin 0.4 (0.2-1.3) mg/dL AST 21 (17-59) U/L ALT 27 (6-50) U/L Alkaline Phosphatase 82 (38-126) U/L Albumin 3.6 (3.5-5.1) g/dL Imaging Radiologist's impression: CT Scan Report Signed Patient: Santos Bernardo : 1985 MR#: [id number] Age: 39 Acct:[id number] Loc: [facility] ADM Date: 02/04/25Attending Dr: Ordering Physician: Milla Jarquin III, DO Date of Service: 02/04/25 Procedure(s): CT abdomen pelvis w con Accession Number(s): [id number] cc: Milla Jarquin III, DO; Tyson Avila DO~ EXAMINATION: CT abdomen pelvis w con DATE: 02/04/2025 09:27 INDICATION: Left lower quadrant abdominal pain TECHNIQUE: Computed tomography (CT) of the abdomen and pelvis was performed without intravenous contrast. Automated exposure control and iterative reconstruction technique were employed. The dose-length product was 1379.69 mGy-cm. COMPARISON: None FINDINGS: Lung bases are clear. Heart size normal. No pericardial or pleural effusion. Liver, gallbladder, spleen, pancreas, bilateral adrenal glands and kidneys are normal. Normal appendix. No bowel obstruction. There are several scattered diverticula with descending and sigmoid colon predominance. There is prominent wall thickening and inflammatory stranding along the sigmoid colon consistent with diverticulitis. 3.3 x 1.6 x 2.2 cm gas and fluid collection along the anterior margin of the sigmoid colon within this region which could represent a diverticulum versus a small intramural abscess. There is prominent edematous-appearing wall thickening of the partially decompressed bladder with prompt at the dome of the bladder where there is some surrounding stranding extending between the bladder and the region of diverticulitis suggesting this could be reactive as opposed to due to cystitis. No free intraperitoneal gas or fluid. No pathologically enlarged abdominal or pelvic lymphadenopathy. Chronic mild likely physiologic anterior wedging at L1. Mild lumbar and lower thoracic spondylosis. IMPRESSION: 1. Sigmoid diverticulitis with possible small intramural abscess. 2. Edematous wall thickening at the dome of the bladder with surrounding inflammatory stranding most likely reactive related to the adjacent diverticulitis as opposed to cystitis but would correlate with urinalysis. Reviewed, dictated and finalized at location A.
--- NOTE | 2025-02-05 11:30 | WPDPN ---
Progress Note: A&P Assessment and Plan (1) Diverticulitis of intestine with abscess: Code(s): K57.80 - Diverticulitis of intestine, part unspecified, with perforation and abscess without bleeding Status: Acute Assessment and Plan: Appears to be improving with non operative management. Small intramural or extra colonic abscess contained and his abdominal exam is improving. White blood count is now normalized. Continue with IV antibiotics today. Will advanced to low-fiber diet today. Likely home tomorrow on oral antibiotics and have him follow see my partner Dr. Magallon for a colonoscopy in 4 to 6 weeks. After that time can further discuss whether an elective sigmoid colon resection to prevent further episodes of diverticulitis would be beneficial for him. Subjective Date/time seen: 02/05/25 11:30 Interval history: Patient doing better today. Pain is only a 2 or 3 and is up walking around. Did have a bowel movement today which was loose. It was nonbloody. White blood cell count is now normalized. Exam GI: Other: Abdomen is soft and nondistended. Less tenderness to palpation suprapubic and left lower quadrant. No guarding or rebound. Objective Data Vital Signs Vital Signs: Vital Signs - 24 hr 02/04/25 11:31 02/04/25 12:01 02/04/25 12:31 Temperature 36.6 C Pulse Rate 74 76 75 Respiratory Rate 16 16 16 Blood Pressure 131/69 128/76 117/76 Pulse Oximetry 99 98 100 Oxygen Delivery 02/04/25 13:01 02/04/25 13:46 02/04/25 14:00 Temperature 36.6 C 36.6 C Pulse Rate 74 73 Respiratory Rate 16 18 Blood Pressure 114/75 115/66 Pulse Oximetry 98 97 Oxygen Delivery Room Air 02/04/25 20:00 02/04/25 21:42 02/04/25 21:48 Temperature 37.0 C Pulse Rate 84 Respiratory Rate 20 Blood Pressure 133/71 Pulse Oximetry 98 98 Oxygen Delivery Room Air Room Air 02/05/25 06:00 02/05/25 09:05 Temperature 36.1 C L Pulse Rate 79 Respiratory Rate 16 Blood Pressure 147/68 H Pulse Oximetry 96 Oxygen Delivery Room Air Intake/Output Intake/Output: Intake & Output 02/02/25 02/03/25 02/04/25 02/05/25 23:59 23:59 23:59 23:59 Intake Total 1750 1645 Balance 1750 1645 Meds/Results Medications: Active Medications Generic Name Dose Route Start Last Admin Trade Name Freq PRN Reason Stop Dose Admin Acetaminophen 650 mg 02/04/25 12:27 Acetaminophen 325 Mg Tablet PO Q4H PRN Mild Pain (1-3) or Fever Hydrocodone Bitart/Acetaminophen 1 tab 02/04/25 12:27 02/05/25 09:11 Hydrocodone/Acetaminophen (*Crx) 5-325 Mg Tablet PO 1 tab Q6H PRN Administration Pain Rated 4-6 Cyclobenzaprine HCl 10 mg 02/04/25 14:57 Cyclobenzaprine Hcl 10 Mg Tablet PO TID PRN muscle spasm Docusate Sodium 100 mg 02/04/25 12:27 Docusate Sodium 100 Mg Capsule PO Q12H PRN Constipation Piperacillin/Tazobactam/Dextrose 3.375 gm in 50 mls @ 100 mls/hr 02/04/25 18:20 02/05/25 06:35 Zosyn 3.375 Gm/Ns 50 Ml IVPB 100 mls/hr Q6HR CHRISTINE Administration Morphine Sulfate 2 mg 02/04/25 12:27 02/04/25 16:25 Morphine Sulfate (*Crx) 2 Mg/Ml Inj IV PUSH 2 mg Q4H PRN Administration Pain Rated 7-10 Ondansetron HCl 4 mg 02/04/25 12:27 02/04/25 12:50 Ondansetron Inj 4 Mg/2 Ml Vial IV PUSH 4 mg Q6H PRN Administration Nausea And Vomiting Radiology Results: ITS Impressions Abdomen/Pelvis CT 02/04/25 10:10 IMPRESSION: 1. Sigmoid diverticulitis with possible small intramural abscess. 2. Edematous wall thickening at the dome of the bladder with surrounding inflammatory stranding most likely reactive related to the adjacent diverticulitis as opposed to cystitis but would correlate with urinalysis. Labs Labs: Laboratory Results - last 24 hr 02/05/25 04:44 WBC 9.4 RBC 4.74 Hgb 12.4 L Hct 39.6 L MCV 83.5 MCH 26.2 MCHC 31.3 L RDW 13.1 Plt Count 563 H MPV 8.3 Immature Gran % (Auto) 0.5 Neut % (Auto) 53.6 Lymph % (Auto) 29.3 Metcalfe % (Auto) 8.5 Eos % (Auto) 6.7 H Baso % (Auto) 1.4 H Lymph # (Auto) 2.76 Metcalfe # (Auto) 0.8 H Eos # (Auto) 0.6 H Baso # (Auto) 0.1 Abs Immat Gran (auto) 0.05 H Absolute Neuts (auto) 5.1 Absolute Nucleated RBC 0.000 Nucleated RBC % 0.0 Sodium 137 Potassium 4.2 Chloride 103 Carbon Dioxide 30 Anion Gap 4 BUN 7 L D Creatinine 0.78 Estim Creat Clear Calc 138 Estimated GFR > 60 Glucose 99 Calcium 8.5 Total Bilirubin 0.4 AST 21 ALT 27 Alkaline Phosphatase 82 Total Protein 7.0 Albumin 3.6
[2025-02-05 14:40] VITALS: BP 114/66; PULSE 78; RESP 16; TEMP 36.6; O2SAT 97
[2025-02-05 20:32] VITALS: BP 117/58; PULSE 82; RESP 18; TEMP 36.1; O2SAT 98
[2025-02-06 05:14] LABS: Basophils Absolute Auto 0.1 K/mm3 (0.0-0.1); Basophils Percent Auto 1.4 % (0.2-1.2); Eosinophils Absolute Auto 0.7 K/mm3 (0-0.3); Eosinophils Percent Auto 9.6 % (0-4.4); Hematocrit 39.8 % (42.0-52.0); Hemoglobin 12.4 g/dL (14.0-18.0); Immature Granulocyte Absolute 0.03 K/mm3 (0.00-0.031); Immature Granulocyte Percent A 0.4 % (0-0.5); Lymphocytes Absolute Auto 2.95 K/mm3 (0.9-3.2); Lymphocytes Percent Auto 40.5 % (18.3-44.2); Mean Corpuscular HGB Conc 31.2 g/dl (32-36); Mean Corpuscular Hemoglobin 26.6 pg (26-34); Mean Corpuscular Volume 85.2 fl (80-100); Mean Platelet Volume 8.1 fl (7.4-10.4); Monocytes Absolute Auto 0.6 K/mm3 (0.1-0.6); Neutrophils Absolute Auto 2.9 K/mm3 (1.3-6.7); Neutrophils Percent Auto 40.1 % (45.5-73.1); Platelet Count Result 577 k/mm3 (150-375); Red Blood Count 4.67 M/mm3 (4.6-6.20); Red Cell Distribution Width 13.1 % (11.5-14.5); White Blood Count 7.3 K/mm3 (4.5-10.0)
[2025-02-06 05:35] LABS: Alanine Aminotransferase 37 U/L (6-50); Albumin Level 3.6 g/dL (3.5-5.1); Alkaline Phosphatase 73 U/L (38-126); Anion Gap 6 mmol/L (4-12); Aspartate Amino Transferase 27 U/L (17-59); Bilirubin,Total 0.2 mg/dL (0.2-1.3); Blood Urea Nitrogen 7 mg/dL (9-20); Calcium 8.5 mg/dL (8.4-10.2); Carbon Dioxide 33 mmol/L (22-30); Chloride 101 mmol/L (98-107); Estimated CRCL calculation 140 ml/min; Estimated Glomerular Filt Rate > 60; Glucose 131 mg/dL (65-110); Potassium 4.8 mmol/L (3.4-5.0); Sodium 140 mmol/L (137-145)
[2025-02-06 05:38] LABS: Platelet Clumps Present; Platelet Estimate Increased (Adequate)
[2025-02-06 05:39] LABS: Anisocytosis 1+; Schistocytes None Seen
[2025-02-06 06:00] VITALS: BP 111/70; PULSE 65; RESP 20; TEMP 36.9; O2SAT 97
[2025-02-06] MEDS: PIPERACILLN/TAZ 3.375GM/NS50ML 3.375 GM/50 ML BAG IVPB (06:22)
[2025-02-06] MEDS: HYDROcodone/acetaminophen (*CRX) 5-325 MG TABLET 1 TAB PO (07:00)
--- NOTE | 2025-02-06 08:53 | P.PN_ITS ---
Progress Note: A&P Assessment and Plan (1) Diverticulitis of intestine with abscess: Code(s): K57.80 - Diverticulitis of intestine, part unspecified, with perforation and abscess without bleeding Status: Acute Assessment and Plan: Patient has responded well to non operative management for his sigmoid diverticulitis a possible intramural abscess. White blood cell count is normal and he has had no fevers for over 48hours. Abdominal exam is relatively benign. Okay to discharge home today on oral antibiotics. Will need to stay on oral antibiotics for another 10 days. He can follow-up see me in the office in 10 to 14 days. I will set up a colonoscopy done by my partner Dr. 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 After that time depending on the colonoscopy results I may discuss further with him elective sigmoid colon resection to prevent further episodes of recurrent diverticulitis. He was instructed to return to the emergency room if his lower abdominal pelvic pain returns and becomes severe after discharge. Subjective Date/time seen: 02/06/25 08:53 Interval history: Patient is sleeping this morning. Overall doing well. Had low-fiber diet yesterday and tolerated well. Had a partially formed bowel movement yesterday evening. Pain level is 2 to 3 out of 10 pain. White blood count is normal. He wants to go home today. Exam GI: Other: Abdomen is soft and nondistended. Minimal tenderness to palpation suprapubic region and left lower quadrant. No rebound or guarding. Objective Data Vital Signs Vital Signs: Vital Signs - 24 hr 02/05/25 09:05 02/05/25 14:40 02/05/25 20:32 Temperature 36.6 C 36.1 C L Pulse Rate 78 82 Respiratory Rate 16 18 Blood Pressure 114/66 117/58 L Pulse Oximetry 97 98 Oxygen Delivery Room Air 02/06/25 06:00 Temperature 36.9 C Pulse Rate 65 Respiratory Rate 20 Blood Pressure 111/70 Pulse Oximetry 97 Oxygen Delivery Intake/Output Intake/Output: Intake & Output 02/03/25 02/04/25 02/05/25 02/06/25 23:59 23:59 23:59 23:59 Intake Total 1750 2705 450 Balance 1750 2705 450 Meds/Results Medications: Active Medications Generic Name Dose Route Start Last Admin Trade Name Freq PRN Reason Stop Dose Admin Acetaminophen 650 mg 02/04/25 12:27 Acetaminophen 325 Mg Tablet PO Q4H PRN Mild Pain (1-3) or Fever Hydrocodone Bitart/Acetaminophen 1 tab 02/04/25 12:27 02/06/25 07:00 Hydrocodone/Acetaminophen (*Crx) 5-325 Mg Tablet PO 1 tab Q6H PRN Administration Pain Rated 4-6 Cyclobenzaprine HCl 10 mg 02/04/25 14:57 Cyclobenzaprine Hcl 10 Mg Tablet PO TID PRN muscle spasm Docusate Sodium 100 mg 02/04/25 12:27 Docusate Sodium 100 Mg Capsule PO Q12H PRN Constipation Piperacillin/Tazobactam/Dextrose 3.375 gm in 50 mls @ 100 mls/hr 02/04/25 18:20 02/06/25 06:22 Zosyn 3.375 Gm/Ns 50 Ml IVPB 100 mls/hr Q6HR CHRISTINE Administration Morphine Sulfate 2 mg 02/04/25 12:27 02/04/25 16:25 Morphine Sulfate (*Crx) 2 Mg/Ml Inj IV PUSH 2 mg Q4H PRN Administration Pain Rated 7-10 Ondansetron HCl 4 mg 02/04/25 12:27 02/04/25 12:50 Ondansetron Inj 4 Mg/2 Ml Vial IV PUSH 4 mg Q6H PRN Administration Nausea And Vomiting Radiology Results: ITS Impressions Abdomen/Pelvis CT 02/04/25 10:10 IMPRESSION: 1. Sigmoid diverticulitis with possible small intramural abscess. 2. Edematous wall thickening at the dome of the bladder with surrounding inflammatory stranding most likely reactive related to the adjacent diverticulitis as opposed to cystitis but would correlate with urinalysis. Labs Labs: Laboratory Results - last 24 hr 02/06/25 04:57 WBC 7.3 RBC 4.67 Hgb 12.4 L Hct 39.8 L MCV 85.2 MCH 26.6 MCHC 31.2 L RDW 13.1 Plt Count 577 H MPV 8.1 Immature Gran % (Auto) 0.4 Neut % (Auto) 40.1 L Lymph % (Auto) 40.5 [place] % (Auto) 8.0 Eos % (Auto) 9.6 H Baso % (Auto) 1.4 H Lymph # (Auto) 2.95 [place] # (Auto) 0.6 Eos # (Auto) 0.7 H Baso # (Auto) 0.1 Abs Immat Gran (auto) 0.03 Absolute Neuts (auto) 2.9 Absolute Nucleated RBC 0.000 Band Neutrophils % Not Reportable Nucleated RBC % 0.0 Platelet Estimate Increased Clumped Platelets Present Anisocytosis 1+ Schistocytes None seen Sodium 140 Potassium 4.8 Chloride 101 Carbon Dioxide 33 H Anion Gap 6 BUN 7 L Creatinine 0.77 Estim Creat Clear Calc 140 Estimated GFR > 60 Glucose 131 H Calcium 8.5 Total Bilirubin 0.2 AST 27 ALT 37 Alkaline Phosphatase 73 Total Protein 7.0 Albumin 3.6
--- NOTE | 2025-02-06 09:10 | P.DS_ITS ---
DS: Admitting Diagnosis Discharge Date 02/06/2025 Admitting Diagnosis Diverticulitis DS: Discharge Diagnosis Discharge Diagnosis (1) Diverticulitis: Code(s): K57.92 - Diverticulitis of intestine, part unspecified, without perforation or abscess without bleeding Status: Acute Assessment and Plan: - CT abd/pelvis: 1. Sigmoid diverticulitis with possible small intramural abscess. 2. Edematous wall thickening at the dome of the bladder with surrounding inflammatory stranding most likely reactive related to the adjacent diverticulitis as opposed to cystitis but would correlate with urinalysis. - started on Zosyn on 02/04 - general surgery consulted due to possible abscess on CT - recs for abx and admission - IV fluids: N/A - Low fiber diet - pain medication prn - daily clinical reassessment for improvement - continue to trend labs in the AM, WBC now WDL - Per GI note this AM: Okay to discharge home today on oral antibiotics. Will need to stay on oral antibiotics for another 10 days. He can follow-up see me in the office in 10 to 14 days. I will set up a colonoscopy done by my partner Dr. 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 After that time depending on the colonoscopy results I may discuss further with him elective sigmoid colon resection to prevent further episodes of recurrent diverticulitis. He was instructed to return to the emergency room if his lower abdominal pelvic pain returns and becomes severe after discharge. -Pt feeling a lot better today, had large BM this AM. Only mild pain now to suprapubic and LLQ areas. Denies N/V/D. -Sending home with small course of pain medication and GI to send oral abx. Plan to f/u with gen surgery, GI for cscope, and established with new PCP. DS: Summary Hospital Course Reason for hospitalization: Abd pain Hospital Course: This is a 39-year-old male with history of asthma and diverticulitis who presented to the Emergency department from home for abdominal pain and fever that started on February 04. He is complaining of left lower quadrant pain, suprapubic pain, and right lower quadrant pain x1 week. Patient also complaining of subjective fever for a couple of days. Patient reports that he had an old prescription of Augmentin and he took about 5 days worth of that with no relief. He denies nausea, vomiting, diarrhea, urinary symptoms, or black or bloody stools. Hemodynamically stable in the ED and since admission. White count of 11.9 in ED and has since decreased to 7.[address] of the abdominal/pelvis showed sigmoid diverticulitis with possible also with edematous wall thickening of the dome of the bladder with surrounding inflammatory stranding most likely reactive related to the adjacent diverticulitis as opposed to cystitis. Patient was put on a clear liquid diet pain medicine p.r.n. and started on Zosyn q 6 hours. Patient was tolerating clear liquid diet and was moved to low-fiber diet which he has been tolerating. Surgery has been following him with recs to discharge today with oral antibiotics and a follow-up with them in 10-14 days. Surgery has also written for his home oral antibiotics. Additional plan to undergo colonoscopy, surgery will schedule this. Pt with normal, large, formed BM this AM. Time spent discussing smoking cessation with patient: 3 to 10 minutes Status at Discharge Functional status at discharge: independent ambulation Overall status at discharge: patient is progressing back to baseline Time Spent with Patient Time attestation: Total time spent providing and/or coordinating discharge services: Time spent: Less than 30 minutes Exam Const: General: comfortable and no acute distress HENMT: Face/Nose/Sinus: Normal nares present Mouth: Yes moist mucous membranes Eyes: General: appearance normal, both eyes and all related structures Sclera: sclerae normal Neck: Neck: supple and no JVD Resp: Effort & Inspection: normal respiratory effort Auscultation: clear to auscultation bilaterally Cardio: Rate: regular rate Rhythm: regular rhythm GI: GI Palp: Yes Tenderness to palpation present (GI) (mild suprapubic and LLQ TTP) Auscultation: normal bowel sounds Skin: General skin exam: normal color and no rashes or lesions noted Wounds: no wounds Neuro: Motor exam (neuro): Normal motor muscle tone present throughout Sensory Exam: normal sensation Extrem: General: normal to inspection Psych: Mental Status: mental status grossly normal Affect: normal affect DS: Data Data Completed and Pending Completed studies during hospitalization: CT a/p Labs on day of discharge: Labs from last 24 hours 02/06/25 04:57 WBC 7.3 RBC 4.67 Hgb 12.4 L Hct 39.8 L MCV 85.2 MCH 26.6 MCHC 31.2 L RDW 13.1 Plt Count 577 H MPV 8.1 Immature Gran % (Auto) 0.4 Neut % (Auto) 40.1 L Lymph % (Auto) 40.5 [place] % (Auto) 8.0 Eos % (Auto) 9.6 H Baso % (Auto) 1.4 H Lymph # (Auto) 2.95 [place] # (Auto) 0.6 Eos # (Auto) 0.7 H Baso # (Auto) 0.1 Abs Immat Gran (auto) 0.03 Absolute Neuts (auto) 2.9 Absolute Nucleated RBC 0.000 Band Neutrophils % Not Reportable Nucleated RBC % 0.0 Platelet Estimate Increased Clumped Platelets Present Anisocytosis 1+ Schistocytes None seen Sodium 140 Potassium 4.8 Chloride 101 Carbon Dioxide 33 H Anion Gap 6 BUN 7 L Creatinine 0.77 Estim Creat Clear Calc 140 Estimated GFR > 60 Glucose 131 H Calcium 8.5 Total Bilirubin 0.2 AST 27 ALT 37 Alkaline Phosphatase 73 Total Protein 7.0 Albumin 3.6 Discharge Plan Discharge Attending physician on discharge: Amelia Manrique Consulting providers: Jaylan Joseph Discharging Clinician: Amelia Manrique Anticipated Discharge Date/Time: 02/06/25 12:00 Patient Disposition: Home Activity: may shower and unlimited Diet: low fiber Discharge Instructions: Patient may discharge from the hospital today from surgery standpoint. Follow up to see Dr. Joseph in the office in 10 to 14 days. Return to the emergency room if abdominal pain recurs and is severe. Stay on a low-fiber diet until seen in the office. Oral antibiotics, Flagyl and Augmentin scripts are written and sent to the pharmacy. Patient stays on oral antibiotics for the next 10 days. After patient was seen in the office by me then I will refer him to get a colonoscopy performed by Dr. Magallon in 4 to 6 weeks. Establish care with provided primary care provider, Dr. Lester for follow-up and potential care for outpatient diverticulitis. Work note for limited physical activity x2 days Patient Instructions: Antibiotic Form, Diverticulitis (GEN), Low Fiber Diet (GEN), Diverticulitis Diet (GEN) Patient Language: [place]ian Stand Alone Forms: General Discharge Information, Work/School Release IP Follow-up/Referrals: Eugene Lester MD [Physician] - 2 Weeks (Establish care with new primary care provider. Follow-up for diverticulitis.) Jaylan Joseph MD [Physician] - (Follow-up Dr. Joseph in the office in 10 to 14 days) Discharge Medications: New hydrocodone-acetaminophen 5-325 mg Tablet 1 tablet PO Q6H PRN (Reason: Pain Rated 4-6) Qty: 10 0RF docusate sodium 50 mg capsule 50 mg PO DAILY Qty: 10 0RF metronidazole 500 mg tablet 500 mg PO Q8H Qty: 30 1RF amoxicillin-pot clavulanate 875-125 mg tablet 1 tablet PO Q12H Qty: 20 1RF Continued cyclobenzaprine 10 mg tablet 10 mg PO TID PRN (Reason: muscle spasm) Qty: 20 0RF Rx Instructions: Do not take while driving. May cause drowsiness. Date of admission: 02/04/25 12:18 Primary Care Provider: Tyson Avila Admitting Provider: Toi Lord Attending physician on admission: Toi Lord Condition: Stable Quality VTE Prophylaxis VTE prophylaxis: mechanical ordered Hospitalist MIPS Heart Failure (Exclusion) Patient has history of Heart Transplant or Left Ventricular Assistive Device?: No IF YES, STOP HERE Heart Failure (Qualifier) Patient has current or prior documentation of LVEF less than or equal to 40%, or mod/servere depressed LVSF?: No IF NO, STOP HERE
== END 2025-02-06 11:35 | disposition home or self-care (01) ==
LOC: ANHED 12:17 → ANH2MED 13:29
PROVIDERS: Student in an Organized Health Care Education/Training Program; Admitting Provider Internal Medicine; Emergency Provider Emergency Medicine; PCP Internal Medicine; Visit Provider Internal Medicine
DX: K57.20 Diverticulitis of large intestine with perforation and abscess without bleeding (principal); J45.909 Unspecified asthma, uncomplicated; F17.210 Nicotine dependence, cigarettes, uncomplicated; Z79.899 Other long term (current) drug therapy
CPT/HCPCS: 36415; 74177; 80053; 81001; 83690; 85025; 96361; 96365; 96375; 99285; A9270; G0378; J2270; J2405; J2543; J7120; Q9967